=== PATIENT | female | born 1950 | race Caucasian/White ===

== ENCOUNTER 2016-11-23 13:11 | Emergency (ER) | payer MEDICARE, OTHER ==
[2016-11-23] MEDS ORDERED: NORMAL SALINE 1000 ML 1,000 ML IV ONE ×2 (13:58→18:32)
--- NOTE | 2016-11-23 13:59 | ER Document Report ---
ED GI/ - General Chief Complaint: Nausea/Vomiting/Diarrhea Stated Complaint: NAUSEA Time seen by provider: 13:58 Mode of Arrival: Medic Information source: Patient Notes: 66 yo female woke up left lower abdomen and left flank pain, vertigo, felt like she had gas, nausea and vomiting, diarrhea (no blood or mucous). No abdominal surgery. No hx diverticulitis, crohns or colitis. Hx diabetes 2, htn. [place] well yesterday. No chest pain or SOB. Very somnolent during history had to keep waking her up. Temp. 102. No dysuria. Visiting from [place], arrived today. Was getting uncomfortable in the car-left flank and suprapubic. TRAVEL OUTSIDE OF THE [place] IN LAST 30 DAYS: No - Related Data Allergies/Adverse Reactions: No Known Allergies Allergy (Unverified 11/23/16 14:07) Past Medical History - General Information source: Patient - Social History Smoking Status: Never Smoker Frequency of alcohol use: None Drug Abuse: None Lives with: Family Family History: Reviewed & Not Pertinent - T her proximal stone down - Past Medical History Cardiac Medical History: Reports: Hx Hypertension Endocrine Medical History: Reports: Hx Diabetes Mellitus Type 2 Renal/ Medical History: Reports: Other - frequent uti. Denies: Hx Kidney Stones Review of Systems - Review of Systems Constitutional: No symptoms reported EENT: No symptoms reported Cardiovascular: No symptoms reported Respiratory: No symptoms reported Gastrointestinal: See HPI Genitourinary: No symptoms reported Female Genitourinary: No symptoms reported Musculoskeletal: See HPI Skin: No symptoms reported Hematologic/Lymphatic: No symptoms reported Neurological/Psychological: No symptoms reported Physical Exam - Vital signs Vitals: Temp Pulse BP Pulse Ox 100.1 F 111 H 170/88 H 95 11/23/16 13:20 11/23/16 13:20 11/23/16 13:20 11/23/16 13:20 Interpretation: Normal - General General appearance: Appears well, Alert - HEENT Head: Normocephalic, Atraumatic Eyes: Normal Conjunctiva: Normal Pupils: PERRL Mucous membranes: Normal Pharynx: Normal Neck: Supple. No: Lymphadenopathy - Respiratory Respiratory status: No respiratory distress Chest status: Nontender Breath sounds: Normal Chest palpation: Normal - Cardiovascular Rhythm: Regular Heart sounds: Normal auscultation Murmur: No - Abdominal Inspection: Normal Distension: No distension Bowel sounds: Normal Tenderness: Nontender. No: Tender Organomegaly: No organomegaly - Back Back: Normal, CVA tenderness - mild left - Extremities General upper extremity: Normal inspection, Nontender, Normal color, Normal ROM , Normal temperature General lower extremity: Normal inspection, Nontender, Normal color, Normal ROM , Normal temperature, Normal weight bearing. No: Rhett's sign - Neurological Neuro grossly intact: Yes Cognition: Normal Orientation: AAOx4 Chanda Coma Scale Eye Opening: Spontaneous Chanda Coma Scale Verbal: Oriented Chanda Coma Scale Motor: Obeys Commands Renick Coma Scale Total: 15 Speech: Normal Motor strength normal: LUE, RUE, LLE, RLE Sensory: Normal - Psychological Associated symptoms: Normal affect, Normal mood - Skin Skin Temperature: Warm Skin Moisture: Dry Skin Color: Normal Skin irregularity: negative: Rash Course - Re-evaluation Re-evalutation: 11/23/16 17:59 pain is now 0 after the torodol. 10 mm proximal left uretal stone with obstruction with infection versus calyx rupture. since urinalysis is nitrit positive and 3 + bacteria, presume infection. Rocephin 1 gm is already infused. Page to urologist at [facility] which is at the patient's request. Dr. Hobson has been consulted 11/23/16 18:33 Dr. Lizabeth Leigh [facility] will accept the patient to a surgical floor bed and stated that he will put in a stent tonight and I explained this to the patient. 11/23/16 19:24 Bed still pending, report given to Alexander Loza Alicia who will take over for the patient - Vital Signs Vital signs: Temp Pulse Resp BP Pulse Ox 100.2 F 110 H 107/43 L 92 11/23/16 19:00 11/23/16 19:00 11/23/16 19:00 11/23/16 19:00 - Laboratory Result Diagrams: 11/23/16 14:20 11/23/16 14:20 Laboratory results interpreted by me: 11/23/16 11/23/16 11/23/16 14:20 14:20 15:20 WBC 14.1 H Seg Neutrophils % 92.2 H Lymphocytes % 5.2 L Monocytes % 2.3 L Absolute Neutrophils 13.0 H Sodium 146.0 H Chloride 109 H Est GFR ( Amer) 58 L Est GFR (Non-Af Amer) 48 L Glucose 122 H Urine Blood SMALL H Urine Nitrite POSITIVE H - Transfer of Care Care transferred to following provider: Alexander Loza FMP at the bedside
[2016-11-23 14:33] LABS: ABSOLUTE LYMPHOCYTES (AUTO) 0.7 10^3/uL (0.5-4.7); ABSOLUTE MONOCYTES (AUTO) 0.3 10^3/uL (0.1-1.4); BASOPHILS % (AUTO) 0.2 % (0-2); EOSINOPHILS % (AUTO) 0.1 % (0-6); HEMATOCRIT 36.1 % (36.0-47.0); HEMOGLOBIN 12.1 g/dL (12.0-15.5); HGB HCT DIFFERENCE 0.2; LYMPHOCYTES % (AUTO) 5.2 % (13-45); MEAN CORPUSCULAR HEMOGLOBIN 28.9 pg (27.0-33.4); MEAN CORPUSCULAR HGB CONC 33.6 g/dL (32.0-36.0); MEAN CORPUSCULAR VOLUME 86 fl (80-97); MONOCYTES % (AUTO) 2.3 % (3-13); RED BLOOD COUNT 4.19 10^6/uL (3.72-5.28); RED CELL DISTRIBUTION WIDTH 13.1 % (11.5-14.0); SEGMENTED NEUTROPHILS % (AUTO) 92.2 % (42-78); WHITE BLOOD COUNT 14.1 10^3/uL (4.0-10.5)
[2016-11-23 14:54] LABS: ALANINE AMINOTRANSFERASE 23 U/L (9-52); ALBUMIN 3.9 g/dL (3.5-5.0); ALKALINE PHOSPHATASE 97 U/L (38-126); ANION GAP 14 (5-19); ASPARTATE AMINO TRANSFERASE 27 U/L (14-36); BILIRUBIN,DIRECT 0.2 mg/dL (0.0-0.4); BILIRUBIN,TOTAL 0.9 mg/dL (0.2-1.3); BLOOD UREA NITROGEN 19 mg/dL (7-20); CALCIUM 9.7 mg/dL (8.4-10.2); CARBON DIOXIDE 23 mmol/L (22-30); CHLORIDE 109 mmol/L (98-107); CREATININE RESULT 1.13 mg/dL (0.52-1.25); GLUCOSE 122 mg/dL (75-110); LIPASE 48.8 U/L (23-300); POTASSIUM 3.6 mmol/L (3.6-5.0); TOTAL PROTEIN 6.7 g/dL (6.3-8.2)
[2016-11-23 15:53] LABS: APPEARANCE,URINE CLEAR; BILIRUBIN,URINE NEGATIVE (NEGATIVE); GLUCOSE, URINE NEGATIVE (NEGATIVE); KETONES,URINE NEGATIVE (NEGATIVE); LEUKOCYTE ESTERASE,URINE NEGATIVE (NEGATIVE); NITRITE,URINE POSITIVE (NEGATIVE); PROTEIN,URINE NEGATIVE (NEGATIVE); URINE SPECIFIC GRAVITY 1.009; UROBILINOGEN,URINE NEGATIVE mg/dL (<2.0)
[2016-11-23] MEDS ORDERED: CEFTRIAXONE 1 GM/D5W RTU 50 ML IV ONE (16:43)
[2016-11-23] MEDS ORDERED: METOCLOPRAMIDE HCL INJ/PF 10 MG/2 ML SDV IV ONE (16:49)
[2016-11-23] MEDS ORDERED: DIPHENHYDRAMINE HCL 50 MG/ML VIAL IV ONE (16:49)
[2016-11-23] MEDS ORDERED: KETOROLAC TROMETHAMINE INJ/PF 30 MG/1 ML SDV IV ONE (16:49)
[2016-11-23] MEDS ORDERED: MORPHINE SULFATE 10 MG/ML INJ IV ONE (17:46)
--- NOTE | 2016-11-23 21:56 | ER Document Report ---
Doctor's Note Notes: 11/23/16 21:56 Patient was independent evaluated. Patient has no complaints this time patient' s stable for transport.
[2016-11-23 21:58] VITALS: BP 103/50
== END 2016-11-23 21:46 | disposition short-term general hospital (02) ==
LOC: ER 13:11
DX: N13.2 Hydronephrosis with renal and ureteral calculous obstruction (principal); R10.32 Left lower quadrant pain; R42 Dizziness and giddiness; R11.2 Nausea with vomiting, unspecified; R19.7 Diarrhea, unspecified; R40.0 Somnolence; E11.9 Type 2 diabetes mellitus without complications; I10 Essential (primary) hypertension; Z87.440 Personal history of urinary (tract) infections
CPT/HCPCS: 99285; 96361; 96375; 96365; 36415; 87086; 83690; 85025; 87088; 80053; 81001; 87186; 76380; J1200; J1885; J2765; J7030; J0696